=== PATIENT | male | born 1975 | race African-American/Black ===

== ENCOUNTER 2019-03-06 22:47 | Inpatient (IN) | payer BC ==
[~2019-03-06] VITALS: Ht 188 cm; Wt 133.0 kg
--- NOTE | 2019-03-06 22:53 | ED.ADGEN ---
Past History Past Medical History: Diabetes, Hypertension Adult General Chief Complaint Chief Complaint ".. I passed out again.. we were at the [facility] but I got sick.. and we came home.. I ve had problems with my blood sugar for month now.. I ve been to [place] twice the last month.. they give me fluids and send me home.. My sugar was 500 on my last check..." HPI HPI Patient is a 43 year old male who presents with above hx and syncope. Pt. is know diabetic and has been compliant with diet and meds. Pt. takes NPH 15 AM, 16 NPH PM, 10 R in Am. Patient states with prior syncopal episodes as well as one today patient collapsed completely to ground. Pt. is aware of the syncope event as it occurs. Pt. follows with Dr. Patton. No recent travel. No specific ill contacts. No history of trauma. Patient does have history of hypertension. Patient denies any history of cardiac , DVT, or pulmonary embolisms. Systemic and other who witnessed these events states he had no seizure-like activity. Reports he regains consciousness once he is on the ground. Review of Systems Review of Systems Constitutional: Denies fever or chills [] Eyes: Denies change in visual acuity, redness, or eye pain [] HENT: Denies nasal congestion or sore throat [] Respiratory: Denies cough or shortness of breath [] Cardiovascular: No additional information not addressed in HPI [] GI: Denies abdominal pain, nausea, vomiting, bloody stools or diarrhea [] : Denies dysuria or hematuria [] Musculoskeletal: Denies back pain or joint pain [] Integument: Denies rash or skin lesions [] Neurologic: Denies headache, focal weakness or sensory changes []complaints of syncope Endocrine: Complaints of polyuria or polydipsia [] All other systems were reviewed and found to be within normal limits, except as documented in this note. Family History Family History Diabetes and hypertension Current Medications Current Medications Current Medications Medications (Trade) Dose Ordered Sig/Enrique Start Time Stop Time Status Last Admin Dose Admin Lactated Ringer's 1,000 ml @ 1,000 mls/hr Q1H 03/06/19 22:57 03/07/19 01:10 DC 03/07/19 00:20 1,000 MLS/HR Ondansetron HCl (Zofran) 8 mg 1X ONCE 03/06/19 23:15 03/07/19 01:10 DC 03/07/19 00:21 8 MG Sodium Chloride 1,000 ml @ 1,000 mls/hr 1X ONCE 03/06/19 23:15 03/07/19 01:10 DC 03/07/19 00:20 1,000 MLS/HR Allergies Allergies No known drug allergies Physical Exam Physical Exam Constitutional: Well developed, well nourished, mild distress, non-toxic appearance. [] HENT: Normocephalic, atraumatic, bilateral external ears normal, oropharynx dry, no oral exudates, nose normal. [] Eyes: PERRLA, EOMI, conjunctiva normal, no discharge. [] Neck: Normal range of motion, no tenderness, supple, no stridor. [] Cardiovascular:Heart rate regular rhythm, no murmur [] Lungs & Thorax: Bilateral breath sounds clear to auscultation [] Abdomen: Bowel sounds normal, soft, no tenderness, no masses, no pulsatile masses. [] Skin: Warm, dry, no erythema, no rash. [] Back: No tenderness, no CVA tenderness. [] Extremities: No tenderness, no cyanosis, no clubbing, ROM intact, no edema. No significant cording appreciated. Neurologic: Alert and oriented X 3, normal motor function, normal sensory function, no focal deficits noted. []DTRs +2 patella and brachial. Charger Operator equal. Right-hand dominant. No drift. Psychologic: Affect anxious, normal, mood normal. [] Current Patient Data Lab Results Laboratory Tests Test 03/07/19 00:14 White Blood Count 9.4 x10^3/uL (4.0-11.0) Red Blood Count 5.13 x10^6/uL (4.30-5.70) Hemoglobin 13.6 g/dL (13.0-17.5) Hematocrit 41.5 % (39.0-53.0) Mean Corpuscular Volume 81 fL (79-100) Mean Corpuscular Hemoglobin 26 pg (25-35) Mean Corpuscular Hemoglobin Concent 33 g/dL (31-37) Red Cell Distribution Width 15.4 % (11.5-14.5) H Platelet Count 440 x10^3/uL (140-400) H Neutrophils (%) (Auto) 76 % (31-73) H Lymphocytes (%) (Auto) 12 % (24-48) L Monocytes (%) (Auto) 10 % (0-9) H Eosinophils (%) (Auto) 1 % (0-3) Basophils (%) (Auto) 0 % (0-3) Neutrophils # (Auto) 7.2 x10^3uL (1.8-7.7) Lymphocytes # (Auto) 1.2 x10^3/uL (1.0-4.8) Monocytes # (Auto) 1.0 x10^3/uL (0.0-1.1) Eosinophils # (Auto) 0.1 x10^3/uL (0.0-0.7) Basophils # (Auto) 0.0 x10^3/uL (0.0-0.2) Erythrocyte Sedimentation Rate 25 (0-15) H Prothrombin Time 9.6 SEC (9.4-11.4) Prothrombin Time INR 1.0 (0.9-1.1) PTT 23 SEC (23-33) D-Dimer (Yelitza) 1.81 mg/L (0.00-0.50) H Sodium Level 130 mmol/L (136-145) L Potassium Level 4.0 mmol/L (3.5-5.1) Chloride Level 93 mmol/L (98-107) L Carbon Dioxide Level 27 mmol/L (21-32) Anion Gap 10 (6-14) Blood Urea Nitrogen 38 mg/dL (8-26) H Creatinine 3.1 mg/dL (0.7-1.3) H Estimated GFR (Cockcroft-Gault) 27.0 Glucose Level 530 mg/dL (70-99) *H Calcium Level 10.2 mg/dL (8.5-10.1) H Phosphorus Level 3.5 mg/dL (2.6-4.7) Magnesium Level 2.1 mg/dL (1.8-2.4) Total Bilirubin 0.5 mg/dL (0.2-1.0) Direct Bilirubin 0.1 mg/dL (0.0-0.2) Aspartate Amino Transferase (AST) 10 U/L (15-37) L Alanine Aminotransferase (ALT) 21 U/L (16-63) Alkaline Phosphatase 76 U/L (46-116) Creatine Kinase 162 U/L (39-308) Troponin I Quantitative < 0.017 ng/mL (0-0.055) ZE-Qar-H-Type Natriuretic Peptide 13 pg/mL (0-124) Total Protein 7.7 g/dL (6.4-8.2) Albumin 3.7 g/dL (3.4-5.0) Lipase 111 U/L (73-393) Acetone Level Neg (NEG) EKG EKG My interpretation EKG shows a sinus rhythm at 89 bpm. No findings acute STEMI with contralateral changes[] Radiology/Procedures Radiology/Procedures My interpretation of chest x-ray shows no acute cardiopulmonary findings.. I interpretation CT head shows no shift, mass, edema, bleed, or fracture. See formal report when available[] Course & Med Decision Making Course & Med Decision Making Pertinent Labs and Imaging studies reviewed. (See chart for details) Patient admitted to Dr. Bear for further eval and tx. [] Final Impression Final Impression 1. Syncope[] 2. DM 530 glucose 3. HTN Hx 4. Dehydration 5. Hyponatremia 130 6. Elevated D-dimer 1.81 7. Hyponatremia 130 Dragon Disclaimer Dragon Disclaimer This electronic medical record was generated, in whole or in part, using a voice recognition dictation system. Discharge Summary Visit Information Final Diagnosis Problems Medical Problems: (1) Diabetes Status: Acute Brief Hospital Course Lab Results Laboratory Tests Test 03/07/19 00:14 White Blood Count 9.4 x10^3/uL (4.0-11.0) Red Blood Count 5.13 x10^6/uL (4.30-5.70) Hemoglobin 13.6 g/dL (13.0-17.5) Hematocrit 41.5 % (39.0-53.0) Mean Corpuscular Volume 81 fL (79-100) Mean Corpuscular Hemoglobin 26 pg (25-35) Mean Corpuscular Hemoglobin Concent 33 g/dL (31-37) Red Cell Distribution Width 15.4 % (11.5-14.5) Platelet Count 440 x10^3/uL (140-400) Neutrophils (%) (Auto) 76 % (31-73) Lymphocytes (%) (Auto) 12 % (24-48) Monocytes (%) (Auto) 10 % (0-9) Eosinophils (%) (Auto) 1 % (0-3) Basophils (%) (Auto) 0 % (0-3) Neutrophils # (Auto) 7.2 x10^3uL (1.8-7.7) Lymphocytes # (Auto) 1.2 x10^3/uL (1.0-4.8) Monocytes # (Auto) 1.0 x10^3/uL (0.0-1.1) Eosinophils # (Auto) 0.1 x10^3/uL (0.0-0.7) Basophils # (Auto) 0.0 x10^3/uL (0.0-0.2) Erythrocyte Sedimentation Rate 25 (0-15) Prothrombin Time 9.6 SEC (9.4-11.4) Prothromb Time International Ratio 1.0 (0.9-1.1) Activated Partial Thromboplast Time 23 SEC (23-33) D-Dimer (Yelitza) 1.81 mg/L (0.00-0.50) Sodium Level 130 mmol/L (136-145) Potassium Level 4.0 mmol/L (3.5-5.1) Chloride Level 93 mmol/L (98-107) Carbon Dioxide Level 27 mmol/L (21-32) Anion Gap 10 (6-14) Blood Urea Nitrogen 38 mg/dL (8-26) Creatinine 3.1 mg/dL (0.7-1.3) Estimated GFR (Cockcroft-Gault) 27.0 Glucose Level 530 mg/dL (70-99) Calcium Level 10.2 mg/dL (8.5-10.1) Phosphorus Level 3.5 mg/dL (2.6-4.7) Magnesium Level 2.1 mg/dL (1.8-2.4) Total Bilirubin 0.5 mg/dL (0.2-1.0) Direct Bilirubin 0.1 mg/dL (0.0-0.2) Aspartate Amino Transf (AST/SGOT) 10 U/L (15-37) Alanine Aminotransferase (ALT/SGPT) 21 U/L (16-63) Alkaline Phosphatase 76 U/L (46-116) Creatine Kinase 162 U/L (39-308) Troponin I Quantitative < 0.017 ng/mL (0-0.055) VG-Tzd-D-Type Natriuretic Peptide 13 pg/mL (0-124) Total Protein 7.7 g/dL (6.4-8.2) Albumin 3.7 g/dL (3.4-5.0) Lipase 111 U/L (73-393) Acetone Level Neg (NEG) Brief Hospital Course Mr. Luna is a 43 old male who presented with dehydration and elevated glucose. Admit to Dr. Bear Discharge Information Dischare Medications Current Medications Lactated Ringer's 1,000 ml @ 1,000 mls/hr Q1H IV Last administered on 03/07/19at 00:20; Admin Dose 1,000 MLS/HR; Start 03/06/19 at 22:57; Stop 03/07/19 at 01:10; Status DC Sodium Chloride 1,000 ml @ 1,000 mls/hr 1X ONCE IV Last administered on 03/07/19at 00:20; Admin Dose 1,000 MLS/HR; Start 03/06/19 at 23:15; Stop 03/07/19 at 01:10; Status DC Ondansetron HCl (Zofran) 8 mg 1X ONCE IV Last administered on 03/07/19at 00:21; Admin Dose 8 MG; Start 03/06/19 at 23:15; Stop 03/07/19 at 01:10; Status DC Dragon Disclaimer This chart was dictated in whole or in part using Voice Recognition software in a busy, high-work load, and often noisy Emergency Department environment. It may contain unintended and wholly unrecognized errors or omissions. KELSEY TORRES MD March 06, 2019 22:53
[2019-03-06] MEDS ORDERED: IV RINGERS SOLUTION,LACTATED 1,000 ML IV SCH (22:57)
[2019-03-06] MEDS ORDERED: ONDANSETRON PF 4 MG/2 ML VIAL. IV ONE (23:15)
[2019-03-06] MEDS ORDERED: IV NORMAL SALINE 1,000ML 1,000 ML IV ONE (23:15)
[2019-03-07] VITALS (13 sets, daily range): BP systolic 64–139; BP diastolic 32–63
--- NOTE | 2019-03-07 | RAD ---
PQRS Compliance statement: One or more of the following individualized dose reduction techniques were utilized for this examination: 1. Automated exposure control. 2. Adjustment of the mA and/or kV according to patient size. 3. Use of iterative reconstruction technique. Indication:Syncopal episode x1 week. TECHNIQUE: CT head without IV contrast COMPARISON: None FINDINGS: No pathologic extra-axial or intra-axial fluid collection. The ventricles and basal cisterns are within normal limits. No acute intracranial bleed. No focal loss of middleton-white differentiation. Visualized orbits within normal limits. No suspicious calvarial lesion. Visualized paranasal sinuses and mastoid air cells are clear. IMPRESSION: No acute intracranial process on this noncontrast CT. If concern for acute ischemic stroke is high, please consider MRI brain. Electronically signed by: Bennett Rouse DO (03/06/2019 11:57 PM) [facility]
[2019-03-07 00:44] LABS: BASO % 0 % (0-3); EOS # 0.1 x10^3/uL (0.0-0.7); EOS % 1 % (0-3); HEMATOCRIT 41.5 % (39.0-53.0); HEMOGLOBIN 13.6 g/dL (13.0-17.5); LYMPH # 1.2 x10^3/uL (1.0-4.8); LYMPH % 12 % (24-48); MEAN CORPUSCULAR HEMOGLOBIN 26 pg (25-35); MEAN CORPUSCULAR HGB CONC 33 g/dL (31-37); MEAN CORPUSCULAR VOLUME 81 fL (79-100); MONO % 10 % (0-9); NEUT # 7.2 x10^3uL (1.8-7.7); NEUT % 76 % (31-73); PLATELET COUNT 440 x10^3/uL (140-400); RED BLOOD COUNT 5.13 x10^6/uL (4.30-5.70); RED CELL DISTRIBUTION WIDTH 15.4 % (11.5-14.5); WHITE BLOOD COUNT 9.4 x10^3/uL (4.0-11.0)
[2019-03-07 01:24] LABS: ALBUMIN 3.7 g/dL (3.4-5.0); CALCIUM 10.2 mg/dL (8.5-10.1); CREATININE 3.1 mg/dL (0.7-1.3); DIRECT BILIRUBIN 0.1 mg/dL (0.0-0.2); MAGNESIUM 2.1 mg/dL (1.8-2.4); TOTAL BILIRUBIN 0.5 mg/dL (0.2-1.0); TOTAL PROTEIN 7.7 g/dL (6.4-8.2)
[2019-03-07] MEDS ORDERED: INSULIN REGULAR VIAL 150 UNIT in 0.9 % SODIUM CHLORIDE 150ML 150 ML IV ONE ×2 (01:30→02:00)
[2019-03-07] MEDS ORDERED: ONDANSETRON PF 4 MG/2 ML VIAL. IV PRN (01:45)
[2019-03-07 01:48] LABS: SEDIMENTATION RATE 25 (0-15)
[2019-03-07] MEDS ORDERED: ANTI-COAG MONITOR BY PHARMACY. MC PRN (02:00)
[2019-03-07] MEDS ORDERED: IV RINGERS SOLUTION,LACTATED 1,000 ML IV ONE ×2 (02:15)
--- NOTE | 2019-03-07 02:22 | RAD ---
PROCEDURE: CHEST PA LATERAL CLINICAL INDICATION: Syncope COMPARISON: None FINDINGS: No pneumothorax identified. Cardiac and mediastinal contours unremarkable. No pulmonary consolidation or acute airspace disease. No acute osseous abnormalities identified. IMPRESSION: No pulmonary consolidation or acute airspace disease. Electronically signed by: Bennett Rouse DO (03/07/2019 2:19 AM) [facility]
[2019-03-07] MEDS ORDERED: 0.9 % SODIUM CHLORIDE 150ML 150 ML ONE (02:29)
[2019-03-07] MEDS: ENOXAPARIN ** NOTE DOSE ** SYRINGE SQ SCH ×2 (02:43→08:28)
[2019-03-07 04:54] LABS: BILIRUBIN,URINE NEG (NEG); CLARITY,URINE CLEAR; COLOR,URINE YELLOW; GLUCOSE,URINE >=1000 mg/dL (NEG)
[2019-03-07 04:55] LABS: BACTERIA,URINE 0 /HPF (0-FEW); NITRITE,URINE NEG (NEG); RBC,URINE 0 /HPF (0-2); SQUAMOUS EPITHELIAL CELL,UR OCC /LPF; UROBILINOGEN,URINE 0.2 mg/dL (0.2 mg/dL); WBC,URINE OCC /HPF (0-4)
[2019-03-07 05:00] LABS: AMPHETAMINE/METHAMPHETAMINE NEG (NEG); BARBITURATES NEG (NEG); BENZODIAZEPINES NEG (NEG); CANNABINOIDS NEG (NEG); COCAINE NEG (NEG); METHADONE NEG (NEG); OPIATES NEG (NEG); PHENCYCLIDINE NEG (NEG)
[2019-03-07] MEDS ORDERED: IV DEXTROSE 5 %-0.45 % NACL 1,000 ML IV SCH (05:14)
[2019-03-07] MEDS ORDERED: INSULIN REGULAR VIAL 150 UNIT in 0.9 % SODIUM CHLORIDE 150ML 150 ML IV PRN (05:15)
[2019-03-07] MEDS ORDERED: POTASSIUM CHLORIDE 20 MEQ in IV DEXTROSE 5 %-0.45 % NACL 1,000 ML IV SCH (05:30)
--- NOTE | 2019-03-07 05:30 | NUR ---
The patient, BARBRA SIU, 43 y/o, M admitted by ELENA SHARMA MD, d/t hyperglycemia and syncopal episodes, arrived to ICU-3 via cart accompanied by EMS. Pt had insulin infusing at 5mL for blood sugar of 397, originally 530 upon arrival to ED. Pt was A&Ox4 and all VS WNL upon arrival to the unit. Pt stated he has been having syncopal episodes recently, including "I fell out at work [at the [employer]]" within the last week and that he had been at the [facility] the evening of 06 March, had gone to the men's room and had almost fallen d/t dizziness. Pt was given written information regarding hospital policies, unit procedures and contact persons. Pt's cell phone remains with pt. HERMINIO. Cristiane Medel RN
[2019-03-07] MEDS ORDERED: POTASSIUM CL 20MEQ D5-0.45NACL 1,000 ML IV SCH (06:00)
--- NOTE | 2019-03-07 06:30 | NUR ---
Hypotension At approximately 0630, pt's BP was 64/32. BP checked in other arm, found to be similar. This RN requested assistance from Nursing Black Studies Professor to establish a second IV as insulin and D5 1/2 NS 20mEq KCl running through 22g PIV in L hand. Rosaura RN, started a 20g PIV in pt's R forearm. This RN notified Chema of pt's low BP and Chema ordered open bolus of NS for immediate infusion. Bolus given, pt's BP increased to 90/39 as of 0700. During this time, pt remained A&Ox4 and stated he felt neither dizzy or lightheaded. WCTM.
[2019-03-07 06:53] LABS: CALCIUM 9.6 mg/dL (8.5-10.1); CREATININE 2.5 mg/dL (0.7-1.3); GFR 34.6; POTASSIUM 3.5 mmol/L (3.5-5.1)
[2019-03-07] MEDS ORDERED: IV NORMAL SALINE 1,000ML 1,000 ML IV ONE (07:45)
[2019-03-07] MEDS ORDERED: POTASSIUM CHLORIDE 20 MEQ TABLET.ER. PO PRN (09:15)
[2019-03-07] MEDS ORDERED: DEXTROSE 50% 25 GM / 50ML DISP.SYRIN. IV PRN (09:15)
[2019-03-07] MEDS: IV NORMAL SALINE 1,000ML 1,000 ML IV SCH ×3 (09:50→18:01)
--- NOTE | 2019-03-07 09:50 | NUR ---
Patient IVF and insulin gtt discontinued and changed over to NS. Patients blood sugars remain stable and will be started on SQ insulin and will be able to eat for lunch. Patient vitals remain stable as well. Will continue to monitor.
[2019-03-07 10:46] LABS: CALCIUM 9.1 mg/dL (8.5-10.1); CREATININE 2.1 mg/dL (0.7-1.3); GFR 42.3; POTASSIUM 3.6 mmol/L (3.5-5.1)
[2019-03-07] MEDS ORDERED: ONDA4TAB7 PO (10:51)
[2019-03-07] MEDS ORDERED: LISI40TA PO (10:51)
[2019-03-07] MEDS ORDERED: INSU100I13 SQ (10:51)
[2019-03-07] MEDS ORDERED: METF10007 PO (10:51)
[2019-03-07] MEDS ORDERED: HYDR12.58 PO (10:51)
[2019-03-07] MEDS ORDERED: NPH,100V5 SQ ×2 (10:51)
--- NOTE | 2019-03-07 11:22 | EKG ---
[address] [address] Test Date: 2019-03-07 Test Time: 00:26:50 Pat Name: BARBRA SIU Department: Room: Gender: M [employer] Printing Press Operator: CLARK : 1975 Requested By: KELSEY TORRES Order Number: [id number] Reading MD: Measurements Intervals Kemmerer Rate: 89 P: 42 HI: 144 QRS: 62 QRSD: 94 T: 17 QT: 342 QTc: 417 Interpretive Statements SINUS RHYTHM OTHERWISE NORMAL ECG RI6.01 No previous ECG available for comparison
[2019-03-07] MEDS: ENOXAPARIN 40 MG/0.4 ML SYRINGE. SQ SCH (12:15)
[2019-03-07] MEDS: INSULIN LISPRO 300 UNITS/3 ML INSULN.PEN. SQ SCH ×4 (12:23→21:18)
--- NOTE | 2019-03-07 12:46 | HP ---
ADMIT DATE: 03/07/2019 HISTORY OF PRESENT ILLNESS: The patient is a 43-year-old -Malagasy male patient who came to the Emergency Room complaining of syncope. He stated it was at [facility], but got sick, and when he came home, he nearly passed out. He said he has problem with his blood sugar for a month now and has been in [facility] twice. In the Emergency Room, he was given fluid and was sent home. By the time he arrived to the Emergency Room, his blood sugar was 500; however, at that time, he was not really in diabetic ketoacidosis, has marked dilutional hyponatremia; however, he has elevated BUN and creatinine, I do not have any baseline values to compare with and will contact the [facility] to get some more records. PAST MEDICAL HISTORY: Significant for type 2 diabetes mellitus and he is also on lisinopril. Gastroesophageal reflux disease; however, we are actually obtaining his list from his pharmacy to find out exactly what medications he is on. He is also known to have obstructive sleep apnea, on CPAP. PAST SURGICAL HISTORY: Unremarkable. FAMILY HISTORY: He has one brother and one sister, younger and healthy. His father by hit and run. His mother is still alive and has bronchial asthma. SOCIAL HISTORY: He is , has no children. He smokes occasionally. Does not drink alcohol or any drugs. 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 PHYSICAL EXAMINATION: GENERAL: On arrival to the Emergency Room, he looked well and was clearly in no apparent respiratory distress. No pallor, jaundice, cyanosis, or thyromegaly. No jugular venous distension. No lower limb edema. VITAL SIGNS: Heart rate was 72, blood pressure was 109/57, temperature 97.5, respiratory rate was 16, and oxygen saturation was 98%. HEAD, EYES, EARS, NOSE, AND THROAT: Showed normocephalic, atraumatic. NECK: Supple. HEART: Showed normal first and second heart sounds. No gallop, rub or murmur. CHEST: Clear to auscultation. No crepitation or rhonchi. ABDOMEN: Distended, soft, nontender. No guarding or rigidity. No organomegaly. All hernial orifice intact. Bowel sounds normal. NEUROLOGIC: He was awake, alert, oriented x 3 with normal motor and sensory function. No focal deficits. LABORATORY DATA: While in the Emergency Room, he has had lab work done, which showed that his serum sodium was 130, potassium 4, chloride 93, bicarbonate 27, anion gap of 10, BUN 38, creatinine 3.1, estimated GFR was 27 mL per minute. His glucose was 153, calcium was 10.2. Magnesium was 2.1. Total bilirubin, AST, ALT, alkaline phosphatase were normal. His CK was 162. Beta natriuretic peptide was 13. Total protein was 7.7, albumin was 3.7. Serum lipase was 11. His white cell count was 9400, hemoglobin 13.6, hematocrit 41.5, MCV 81 and platelet count 440,000 with normal manual differential. His sedimentation rate was 20-25 mmHg. His prothrombin time was 9.6, INR of 1, aPTT was 23 and D-dimer was 1.81. His urinalysis showed the urine was yellow, clear with a pH of 5, specific gravity 1.005. The urine was negative for protein. There was large amount of glucose. The urine was negative for ketones, blood, nitrite and leukocyte esterase. There are no rbc's, no wbc's, and no bacteria. His tox screen was essentially negative. His CT scan of the head showed that there is no pathological extra-axial intra-axial fluid collection. The ventricles and basal cisterns are within normal limits. No acute intracranial bleed. No focal loss of middleton-white differentiation. Visualized orbits are within normal limits. No suspicious calvarial lesion. Visualized paranasal sinuses and mastoid air cells are clear. The patient was admitted with syncope, poorly controlled type 2 diabetes, severe dehydration and dilutional hyponatremia and either acute on chronic kidney injury. He has also an elevated D-dimer, although he denied any chest pain, cough, phlegm or hemoptysis. ASSESSMENT AND PLAN: The patient was admitted and was started on insulin drip as well as IV fluid. His blood pressure for some reason has dropped at around 6:30 this morning, so we gave him another liter of normal saline. Continue with the insulin drip. By the time I saw him, his blood pressure was slightly better at 90/56, but he apparently continues to be low. His creatinine is improving slowly, down from 3.1 to 2.5. We will continue to aggressively rehydrate him and I will hold his lisinopril and metformin for now and get some records from [facility] to find out what kind of kidney function he has for last admission. ELENA SHARMA MD DR: KAYLA/alice JOB#: [id number] / [id number]
--- NOTE | 2019-03-07 13:06 | RAD ---
Bilateral lower extremity venous ultrasound, 03/07/2019: History: Syncope, elevated d-dimer Duplex evaluation of the deep veins in the lower extremities was performed including grayscale, color-flow and spectral Doppler analysis. The femoral and popliteal veins demonstrate normal compressibility and normal responses to distal augmentation maneuvers. Color imaging of those vessels shows no evidence of intraluminal clot. The visualized deep veins in both calves are patent. IMPRESSION: There is no sonographic evidence of deep vein thrombosis in either lower extremity. Electronically signed by: Jaylan Mai MD (03/07/2019 1:03 PM) [facility]
--- NOTE | 2019-03-07 14:10 | NUR ---
Patient watching tv at this time, able to stand and urinate without difficulty. States he denies being dizzy or lightheaded upon standing. Remains on IVF for hydration and insulin SQ. Records received from [facility] and given to Dr. Bear, appears patient was recently there and has been doing Ramadan for 3 weeks when patient started to have issues with blood sugar. Vitals and blood sugars remain stable.
[2019-03-07] MEDS ORDERED: INSULIN LISPRO 300 UNITS/3 ML INSULN.PEN. SQ PRN (17:00)
[2019-03-07] MEDS ORDERED: INSULIN GLARGINE 300 UNITS/3 ML INSULN.PEN. SQ SCH (21:00)
[2019-03-08] MEDS: IV NORMAL SALINE 1,000ML 1,000 ML IV SCH ×3 (00:37→08:20)
[2019-03-08 01:05] VITALS: BP 109/60
[2019-03-08 05:55] VITALS: BP 140/71
[2019-03-08 06:59] LABS: BASO # 0.1 x10^3/uL (0.0-0.2); BASO % 1 % (0-3); EOS # 0.2 x10^3/uL (0.0-0.7); EOS % 3 % (0-3); HEMATOCRIT 38.3 % (39.0-53.0); HEMOGLOBIN 12.1 g/dL (13.0-17.5); LYMPH # 2.4 x10^3/uL (1.0-4.8); LYMPH % 32 % (24-48); MEAN CORPUSCULAR HEMOGLOBIN 26 pg (25-35); MEAN CORPUSCULAR HGB CONC 32 g/dL (31-37); MEAN CORPUSCULAR VOLUME 83 fL (79-100); MONO # 0.7 x10^3/uL (0.0-1.1); MONO % 9 % (0-9); NEUT # 4.2 x10^3uL (1.8-7.7); NEUT % 56 % (31-73); PLATELET COUNT 389 x10^3/uL (140-400); RED BLOOD COUNT 4.62 x10^6/uL (4.30-5.70); RED CELL DISTRIBUTION WIDTH 15.4 % (11.5-14.5); WHITE BLOOD COUNT 7.5 x10^3/uL (4.0-11.0)
[2019-03-08 07:12] LABS: CALCIUM 8.9 mg/dL (8.5-10.1); CREATININE 1.3 mg/dL (0.7-1.3); GFR 73.6; POTASSIUM 4.2 mmol/L (3.5-5.1)
[2019-03-08] MEDS: INSULIN LISPRO 300 UNITS/3 ML INSULN.PEN. SQ SCH ×4 (08:19→12:00)
[2019-03-08 10:07] VITALS: BP 134/62
[2019-03-08] MEDS: ENOXAPARIN 40 MG/0.4 ML SYRINGE. SQ SCH (12:15)
--- NOTE | 2019-03-08 14:30 | NUR ---
Dietary here to educate patient, nurse also educated patient on how to use sliding scale insulin and insulin pens. Patient verbalizes and understands plan of care.
[2019-03-08 16:10] LABS: HEMOGLOBIN A1C >15.5 % (4.8-5.6)
--- NOTE | 2019-03-08 16:14 | NUR ---
Dr. SHARMA here at this time, plan is to discharge home. IV removed and patient getting dressed. Will go over discharge instructions at this time.
[2019-03-08] MEDS ORDERED: INSU100I11 SQ (16:33)
[2019-03-08] MEDS ORDERED: METF500T16 PO (16:33)
--- NOTE | 2019-03-08 17:03 | NUR ---
Patient ambulated off unit at this independently. Patient belongings and discharge instructions given to patient. Pt verbalized DC instructions and given prescriptions. Follow up appt placed for March 13 at 1:45PM with Dr Mulligan
--- NOTE | 2019-03-09 01:08 | DS ---
DATE OF DISCHARGE: 03/08/2019 HOSPITAL COURSE: The patient is a 43-year-old -Stateless male patient who was admitted through the Emergency Room. He came complaining of syncope. Apparently, he has had this problem, was seen at [facility] with the same problem and was given IV fluids and sent home. By the time he arrived to the Emergency Room, blood sugar was 500 and at that time he has not really , but has marked dilutional hyponatremia and acute kidney injury. BUN and creatinine are elevated. We treated him with aggressive rehydration and insulin drip. We switched him to Lantus and Humalog insulin, advancing sliding scale and he did very well. PHYSICAL EXAMINATION: GENERAL: When I saw him this afternoon, he was sitting at the edge of the bed comfortably, in no apparent distress. VITAL SIGNS: His heart rate was 78, blood pressure was 134/62, temperature was 97.7, respiratory rate was 16 and oxygen saturation was 97%. HEENT: Examination of the head, eyes, ears, nose and throat showed normocephalic, atraumatic. NECK: Supple. HEART: Showed normal first and second heart sounds. No gallop, rub or murmurs. CHEST: Clear to auscultation. No crepitation or rhonchi. ABDOMEN: Distended, soft, nontender. No guarding or rigidity. No organomegaly. All hernial orifices are intact. Bowel sounds normal. NEUROLOGIC: He was awake, alert, responding appropriately. EXTREMITIES: He moves extremities without difficulty, ambulates without assistance or assistive devices. LABORATORY DATA: His lab work this morning showed a white cell count 7500, hemoglobin 12, hematocrit 38, MCV 83 and platelet count of 389,000. His serum sodium was 140, potassium 4.2, chloride 104, bicarbonate 27, anion gap of 9, BUN 20, creatinine 1.3, estimated GFR was 74 mL per minute. His glucose was 142, calcium was 8.9. His prothrombin time was 9.6, INR of 1, aPTT was 23. D-dimer was 1.81. Urinalysis showed marked glycosuria, negative for proteinuria, blood, nitrite and leukocyte esterase. His toxic screen was unremarkable. DISCHARGE MEDICATIONS: The patient will be discharged home to continue on Lantus insulin 20 units in the morning. He is also on Humalog insulin 15 units before meals, metformin 500 mg twice a day, his lisinopril 40 mg and hydrochlorothiazide 12.5 mg once a day. FINAL DISCHARGE DIAGNOSES: Poorly controlled type 2 diabetes, much improved now, acute kidney injury, resolved. His creatinine came down from 3.1-1.3. Hypertension, resolved. His blood pressure is now normotensive. The patient is Latter Day gnosticist I basically explained to him that given the fact that he has had multiple problems with blood sugar causing him to be dehydrated and developed acute renal failure that he probably should not fast and that he should switch him also to use Humalog instead of the NPH insulin and I explained to him that he could carry with him his insulin at his work and should follow with his primary care physician, Dr. Mulligan to fine tune his blood sugar control. ELENA SHARMA MD DR: KAYLA/alice JOB#: [id number] / [id number]
[2019-03-09] MEDS ORDERED: POTASSIUM CHLORIDE 20 MEQ in IV DEXTROSE 5 %-0.45 % NACL 1,000 ML IV SCH (06:00)
== END 2019-03-08 17:04 | disposition home or self-care (01) | DRG 637 ==
LOC: ER 22:47 → ICU 03-07 00:45
PROVIDERS: ADMIT Internal Medicine; ATTEND Internal Medicine
DX: E11.65 Type 2 diabetes mellitus with hyperglycemia (principal); N17.0 Acute kidney failure with tubular necrosis; E87.1 Hypo-osmolality and hyponatremia; E86.0 Dehydration; I10 Essential (primary) hypertension; K21.9 Gastro-esophageal reflux disease without esophagitis; G47.33 Obstructive sleep apnea (adult) (pediatric); F17.200 Nicotine dependence, unspecified, uncomplicated; E11.9 Type 2 diabetes mellitus without complications; Z82.5 Family history of asthma and other chronic lower respiratory diseases; Z83.3 Family history of diabetes mellitus; Z82.49 Family history of ischemic heart disease and other diseases of the circulatory system
CPT/HCPCS: 36415; 70450; 71046; 80048; 80061; 80076; 80307; 81001; 82010; 82550; 82947; 83036; 83690; 83735; 83880; 84100; 84443; 84484; 85025; 85379; 85610; 85651; 85730; 87641; 93005; 93970; 96365; 96366; 96375; J1650; J1815; J2405; J7120; 99285-25; J7030

== ENCOUNTER 2019-09-04 21:57 | Emergency (ER) | payer BC ==
[~2019-09-04] VITALS: Ht 188 cm; Wt 152.0 kg
[~2019-09-04 21:57] MED LIST: HYDR12.58 PO; INSU100I11 SQ; INSU100I13 SQ; LISI40TA PO; METF10007 PO; METF500T16 PO; NPH,100V5 SQ; ONDA4TAB7 PO
[2019-09-04 22:10] VITALS: BP 149/84
--- NOTE | 2019-09-04 22:49 | PHYS DOC ---
Past History Past Medical History: Diabetes Past Surgical History: No Surgical History Alcohol Use: None Drug Use: None Adult General Chief Complaint Chief Complaint: HAND PROBLEM HPI HPI 44-year-old male presents with right hand pain and swelling. The patient woke up this morning and had a swollen dorsal right hand. Patient does not recall any trauma or overuse. He does use his hands. He is in the food industry. He does not do a lot of lifting or moving of heavy objects. He denies any cuts, lacerations, direct blows. He has no history of gout. The skin is not red or hot to the touch. The patient denies fever or chills. He has no other complaints at this time. Review of Systems Review of Systems Constitutional: Denies fever or chills [] Eyes: Denies change in visual acuity, redness, or eye pain [] HENT: Denies nasal congestion or sore throat [] Respiratory: Denies cough or shortness of breath [] Cardiovascular: No additional information not addressed in HPI [] GI: Denies abdominal pain, nausea, vomiting, bloody stools or diarrhea [] : Denies dysuria or hematuria [] Musculoskeletal: Right hand pain[] Integument: Denies rash or skin lesions [] Neurologic: Denies headache, focal weakness or sensory changes [] Endocrine: Denies polyuria or polydipsia [] All other systems were reviewed and found to be within normal limits, except as documented in this note. Allergies Allergies Allergies Coded Allergies Type Severity Reaction Last Updated Verified No Known Drug Allergies 03/07/19 No Physical Exam Physical Exam Constitutional: Well developed, well nourished, no acute distress, non-toxic appearance. [] HENT: Normocephalic, atraumatic, bilateral external ears normal, oropharynx moist, no oral exudates, nose normal. [] Eyes: PERRLA, EOMI, conjunctiva normal, no discharge. [] Neck: Normal range of motion, no tenderness, supple, no stridor. [] Cardiovascular:Heart rate regular rhythm, no murmur [] Lungs & Thorax: Bilateral breath sounds clear to auscultation [] Abdomen: Bowel sounds normal, soft, no tenderness, no masses, no pulsatile masses. [] Skin: Warm, dry, no erythema, no rash. [] Back: No tenderness, no CVA tenderness. [] Extremities: Tenderness of the right dorsal hand, edema. No erythema, no warmth. No obvious trauma.[] Neurologic: Alert and oriented X 3, normal motor function, normal sensory function, no focal deficits noted. [] Psychologic: Affect normal, judgement normal, mood normal. [] Current Patient Data Vital Signs Vital Signs Date Time Temp Pulse Resp B/P (MAP) Pulse Ox O2 Delivery O2 Flow Rate FiO2 09/04/19 22:10 98.7 68 18 99 Room Air EKG EKG [] Radiology/Procedures Radiology/Procedures [] Course & Med Decision Making Course & Med Decision Making Pertinent Labs and Imaging studies reviewed. (See chart for details) Patient's right hand x-ray is negative for acute findings. I'm unsure what is causing the patient's hand be so swollen. There is no sign of infection. The differential does include gout or pseudogout. It's also possible that he strained it and just doesn't remember how. I have advised ibuprofen 600 mg 3 times a day for the next couple days. Patient states verbal understanding. He is stable for discharge at this time. [] Dragon Disclaimer Dragon Disclaimer This electronic medical record was generated, in whole or in part, using a voice recognition dictation system. Departure Departure: Impression: Primary Impression: Right hand pain Disposition: 01 HOME, SELF-CARE Condition: STABLE Referrals: ANGEL LEONARD MD (PCP) Patient Instructions: Hand Injuries, [id number] KIA BOWMAN DO Sep 04, 2019 22:49
--- NOTE | 2019-09-05 07:08 | RAD ---
Indication: Swelling to the back of the right hand. No known trauma TECHNIQUE: 3 views of the right hand COMPARISON: None FINDINGS: No acute fracture or dislocation. Swelling seen along the dorsal aspect of the hand. No arthritic changes. No radiopaque foreign body or soft tissue emphysema. IMPRESSION: As above. Electronically signed by: Bennett Rouse DO (09/05/2019 7:05 AM) [id number]
== END 2019-09-04 22:55 | disposition home or self-care (01) ==
LOC: ER 21:57
DX: M79.641 Pain in right hand (principal); R22.31 Localized swelling, mass and lump, right upper limb; E11.9 Type 2 diabetes mellitus without complications
CPT/HCPCS: 73130; 99284